=== PATIENT | female | born 1980 | race Caucasian/White ===

== ENCOUNTER 2017-02-12 08:45 | Emergency (ER) | payer OTHER ==
[~2017-02-12] VITALS: Ht 152.4 cm; Wt 56.9 kg
[~2017-02-12 08:45] MED LIST: CHANTIX0.5 MG PO; DEPO-PROVERA; MOTRIN600 MG PO; NOHOMEMEDS; PERCOCET 5/31 TABLET PO; PRENATAL TABLE1 EAC3 PO
[2017-02-12] MEDS ORDERED: ULTRAM50 MG PO (09:08)
[2017-02-12] MEDS ORDERED: NAPROSYN500 MG PO (09:08)
[2017-02-12 09:39] VITALS: BP 119/66
== END 2017-02-12 09:39 | disposition home or self-care (01) ==
LOC: EME 08:45
DX: K03.81 Cracked tooth (principal); Z88.0 Allergy status to penicillin